=== PATIENT | female | born 1945 | race Caucasian/White ===

== ENCOUNTER 2018-10-08 14:54 | Inpatient (IN) | payer MEDICARE ==
[~2018-10-08] VITALS: Ht 162.6 cm; Wt 62.5 kg
[~2018-10-08 14:54] MED LIST: Amoxicillin500 MG PO; Aspir 8181 MG PO; Crutch1 EACH MISC; IBUP800 PO; LISI20 PO; LOVA40; LOVA40 PO; METO50ER PO; Norco 5-325 Ta1 EACH PO; OLME20 PO; OLMESARTAN-HCT1 EAC2 PO; OXYACE5T PO; PSEU120ER PO
[2018-10-08 16:16] LABS: BASOPHILS ABSOLUTE AUTO 0.04 K/mm3 (0.00-0.23); BASOPHILS PERCENT AUTO 1 % (0-2); EOSINOPHILS ABSOLUTE AUTO 0.02 K/mm3 (0.00-0.68); EOSINOPHILS PERCENT AUTO 0 % (0-6); Hematocrit 44.3 % (33.0-51.0); Hemoglobin 14.1 g/dL (11.5-16.0); IMMATURE GRAN ABSOLUTE AUTO 0.02 K/mm3 (0.00-0.10); IMMATURE GRAN PERCENT AUTO 0 % (0-1); LYMPHOCYTES ABSOLUTE AUTO 1.14 K/mm3 (0.84-5.20); LYMPHOCYTES PERCENT AUTO 16 % (21-46); MONOCYTES ABSOLUTE AUTO 0.57 K/mm3 (0.16-1.47); MONOCYTES PERCENT AUTO 8 % (4-13); Mean Corpuscular HGB 30.5 pg (26.0-34.0); Mean Corpuscular HGB Conc 31.8 g/dL (31.5-36.5); Mean Corpuscular Volume 96 fL (80-100); Mean Platelet Volume 11.3 fL (9.1-12.4); NEUTROPHILS PERCENT AUTO 76 % (41-73); Platelet Count 215 K/mm3 (150-400); RDW Coefficient Variation 13.4 % (11.7-14.2); RDW Standard Deviation 47.8 fL (35.1-46.3); Red Blood Cell Count 4.62 M/mm3 (3.80-5.20); White Blood Cell Count 7.29 K/mm3 (4.00-11.30)
[2018-10-08 16:31] LABS: Troponin I 0.052 ng/mL (0.000-0.040)
[2018-10-08 16:32] LABS: Alanine Aminotransfer (ALT/SGP 29 U/L (12-78); Albumin, Blood 4.1 g/dL (3.4-5.0); Alk Phos 113 U/L (50-136); Anion Gap 6 mmol/L (6-16); Aspartate Aminotrans (AST/SGOT 22 U/L (12-37); Bilirubin, Total 0.5 mg/dL (0.1-1.0); Blood Urea Nitrogen 15 mg/dL (8-24); Bun/Creatinine Ratio 15.7 (12.0-20.0); CO2, Blood 28 mmol/L (21-32); Calcium, Blood 9.2 mg/dL (8.5-10.1); Chloride, Blood 106 mmol/L (98-108); Creatinine, Blood 0.96 mg/dL (0.40-1.00); Globulin, Blood 4.2 g/dL (2.2-4.0); Glomerular Filtration Rate >60 (60-); Glucose, Blood 153 mg/dL (70-99); Potassium, Blood 3.5 mmol/L (3.5-5.5); Sodium, Blood 140 mmol/L (136-145); Total Protein, Blood 8.3 g/dL (6.4-8.2)
[2018-10-08] MEDS ORDERED: Benicar40 MG PO (17:57)
--- NOTE | 2018-10-09 05:49 | NUR ---
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 PT AAOX4 AND A STANDBY ASSIST DUE TO SYNCOPAL EPISODE AT HOME PRIOR TO ADMIT. PT AMBULATES WELL AND HAS DENIED DIZZINESS SINCE ADMIT. HYPERTENSIVE ON ARRIVAL WITH SBP 182. GAVE ORDERED PO HYDRALAZINE 25 MG. AFTER RECHECKING BP AN HOUR AND A HALF LATER SBP WENT UP TO LOW 200'S. SPOKE WITH DR REILLY AND RECIEVED ORDERS FOR IV HYDRALAZINE 10-20 MG. SBP DOWN TO 150'S WITH 10 MG IV HYDRALAZINE. 3RD REPEAT TROPONIN TRENDING DOWN. PT DENIES PAIN, N/V, SOB. VSS, WILL CONTINUE TO MONITOR
[2018-10-09 07:31] LABS: BASOPHILS ABSOLUTE AUTO 0.02 K/mm3 (0.00-0.23); BASOPHILS PERCENT AUTO 1 % (0-2); EOSINOPHILS ABSOLUTE AUTO 0.14 K/mm3 (0.00-0.68); EOSINOPHILS PERCENT AUTO 3 % (0-6); Hematocrit 39.7 % (33.0-51.0); Hemoglobin 13.1 g/dL (11.5-16.0); IMMATURE GRAN PERCENT AUTO 0 % (0-1); LYMPHOCYTES ABSOLUTE AUTO 1.71 K/mm3 (0.84-5.20); LYMPHOCYTES PERCENT AUTO 40 % (21-46); MONOCYTES ABSOLUTE AUTO 0.51 K/mm3 (0.16-1.47); MONOCYTES PERCENT AUTO 12 % (4-13); Mean Corpuscular HGB 30.7 pg (26.0-34.0); Mean Platelet Volume 10.6 fL (9.1-12.4); NEUTROPHILS ABSOLUTE AUTO 1.93 K/mm3 (1.96-9.15); NEUTROPHILS PERCENT AUTO 45 % (41-73); Platelet Count 193 K/mm3 (150-400); RDW Coefficient Variation 13.2 % (11.7-14.2); RDW Standard Deviation 45.3 fL (35.1-46.3); Red Blood Cell Count 4.27 M/mm3 (3.80-5.20); White Blood Cell Count 4.31 K/mm3 (4.00-11.30)
[2018-10-09 07:35] LABS: Mean Corpuscular Volume 93 fL (80-100)
[2018-10-09 08:09] LABS: Alanine Aminotransfer (ALT/SGP 22 U/L (12-78); Albumin, Blood 3.3 g/dL (3.4-5.0); Albumin/Globulin Ratio 0.9 (0.8-1.8); Alk Phos 89 U/L (50-136); Anion Gap 5 mmol/L (6-16); Aspartate Aminotrans (AST/SGOT 17 U/L (12-37); Bilirubin, Total 0.4 mg/dL (0.1-1.0); Blood Urea Nitrogen 13 mg/dL (8-24); Bun/Creatinine Ratio 21.4 (12.0-20.0); CO2, Blood 25 mmol/L (21-32); CPK Creatine Kinase 66 U/L (26-193); Calcium, Blood 8.5 mg/dL (8.5-10.1); Chloride, Blood 111 mmol/L (98-108); Creatine Kinase MB 1.5 ng/mL (0.0-3.6); Creatine Kinase MB Index 2.3 (0.0-4.0); Creatinine, Blood 0.61 mg/dL (0.40-1.00); Globulin, Blood 3.6 g/dL (2.2-4.0); Glomerular Filtration Rate >60 (60-); Glucose, Blood 93 mg/dL (70-99); Potassium, Blood 3.4 mmol/L (3.5-5.5); Sodium, Blood 141 mmol/L (136-145); Total Protein, Blood 6.9 g/dL (6.4-8.2)
--- NOTE | 2018-10-09 10:39 | NUR ---
Echocardiogram completed.
--- NOTE | 2018-10-09 17:50 | NUR ---
SHIFT SUMMARY THE PATIENT PRESENTED THIS SHIFT WITH VITALS WNL, EXCEPT ELEVATED B/P, A&O X4 AND WITH CLEAR LUNGS. THE PATIENT'S B/P HAS BEEN ELEVATED MOST OF THE SHIFT, BUT DOCTOR ISTRATE ORDERED VASOTEC AND THE PATIENT'S B/P WENT DOWN TO 147/75 AT 1630. THE PATIENT'S FAMILY HAS BEEN IN AND OUT MOST OF THE SHIFT. THE PATIENT HAS HAD A VARITY OF TESTS AND CONSULTS THIS SHIFT. THE PATIENT IS EATING DINNER AT HIS TIME, WILL CONTINUE TO MONITOR.
--- NOTE | 2018-10-10 04:31 | NUR ---
SUMMARY: A/OX4, SPECIFIES NEEDS AND INDEPENDENT IN ROOM. PT AWARE TO CALL IF DIZZY/LIGHTHEADED OR DEVELOPS ANY S/S CARDIAC DISTRESS BUT HAS DENIED THEM THIS SHIFT. 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 BP BETTER TONIGHT W/SBP 14O'S-160, NO NEED FOR PRN VASOTEC OR HYDRALAZINE PER PARAMETERS. SHE IS NPO EXCEPT ICE/MEDS FOR STRESS TEST AND POSSIBLE LOOP RECORDER IMPLANT THIS TODAY PER CARDIOLOGY. LS CLEAR AND DIM IN BASES W/O ANY SOB. SHE HAD FAMILY VISITING AT START OF SHIFT BUT HAS SINCE SLEPT MAJORITY OF NOCTE W/O COMPLAINTS/CONCERSN. NO ACUTE CHANGES, VSS/AFEBRILE. WILL MONITOR AND REPORT TO DAY RN.
[2018-10-10 05:19] LABS: BASOPHILS ABSOLUTE AUTO 0.04 K/mm3 (0.00-0.23); BASOPHILS PERCENT AUTO 1 % (0-2); EOSINOPHILS ABSOLUTE AUTO 0.17 K/mm3 (0.00-0.68); EOSINOPHILS PERCENT AUTO 3 % (0-6); Hematocrit 39.9 % (33.0-51.0); Hemoglobin 12.8 g/dL (11.5-16.0); IMMATURE GRAN ABSOLUTE AUTO 0.01 K/mm3 (0.00-0.10); IMMATURE GRAN PERCENT AUTO 0 % (0-1); LYMPHOCYTES ABSOLUTE AUTO 1.91 K/mm3 (0.84-5.20); LYMPHOCYTES PERCENT AUTO 39 % (21-46); MONOCYTES ABSOLUTE AUTO 0.49 K/mm3 (0.16-1.47); MONOCYTES PERCENT AUTO 10 % (4-13); Mean Corpuscular HGB 30.5 pg (26.0-34.0); Mean Corpuscular HGB Conc 32.1 g/dL (31.5-36.5); Mean Corpuscular Volume 95 fL (80-100); Mean Platelet Volume 11.2 fL (9.1-12.4); NEUTROPHILS ABSOLUTE AUTO 2.34 K/mm3 (1.96-9.15); NEUTROPHILS PERCENT AUTO 47 % (41-73); Platelet Count 213 K/mm3 (150-400); RDW Coefficient Variation 13.6 % (11.7-14.2); White Blood Cell Count 4.96 K/mm3 (4.00-11.30)
[2018-10-10 05:45] LABS: Anion Gap 8 mmol/L (6-16); Blood Urea Nitrogen 20 mg/dL (8-24); Bun/Creatinine Ratio 22.6 (12.0-20.0); CO2, Blood 28 mmol/L (21-32); Calcium, Blood 8.9 mg/dL (8.5-10.1); Chloride, Blood 108 mmol/L (98-108); Creatinine, Blood 0.89 mg/dL (0.40-1.00); Glomerular Filtration Rate >60 (60-); Glucose, Blood 100 mg/dL (70-99); Sodium, Blood 144 mmol/L (136-145)
--- NOTE | 2018-10-10 08:25 | NUR ---
STRESS TEST/LOOP RECORDER DR. COTTON CALLED TO CLARIFY IF THE PT NEEDS TO BE NPO FOR THE LOOP RECORDER PLACMENT. STATED NO NEED FOR NPO BEFORE PLACEMENT. RODNEY IN [facility] CALLED & INFORMED OF THIS INFO. STRESS TEST NOW WILL BE TENTATIVELY SCHEDULED FOR 1400. PT GIVEN BREAKFAST AT THIS TIME. LUNCH WILL BE HELD.
--- NOTE | 2018-10-10 17:21 | NUR ---
SHIFT SUMMARY PT HAD LOOP RECORDER INPLANTED INTO L CHEST WALL. PT STATES NO PAIN FROM INJECTION SITE. NO BLEEDING NOTED AT SITE. PT SCHEDULED TO HAVE STRESS TEST TOMORROW AT NOON. PT TO BE NPO AT 0800 TOMORROW MORNING. NO OTHER CHANGES IN ASSESSMENT AT THIS TIME. PT IND IN ROOM. WILL CONTINUE TO MONITOR UNTIL TURNOVER IS COMPLETE.
--- NOTE | 2018-10-11 07:28 | NUR ---
SHIFT SUMMARY PT A/O. INDEPENDENT IN ROOM. BP HIGH ENOUGH FOR PARAMETERS TO MEDICATED PER EMAR X2 FOR HYPERTENTION. SHE WAS ABLE TO SLEEP ON AND OFF T/O NIGHT. CALL LIGHT IN REACH.
--- NOTE | 2018-10-11 18:00 | NUR ---
SHIFT SUMMARY PT COMPLETED FIRST PORTION OF STRESS TEST TODAY. PT TO BE NPO AT MIDNIGHT IN PREPARATION FOR SECOND PORTION TOMORROW. PT RECIEVED SHOWER THIS SHIFT. NO CHANGES IN INSERTION SITE AT THIS TIME. VSS. WILL CONTINUE TO MONITOR UNTIL TURNOVER IS COMPLETE.
[2018-10-12 05:14] LABS: BASOPHILS ABSOLUTE AUTO 0.03 K/mm3 (0.00-0.23); BASOPHILS PERCENT AUTO 1 % (0-2); EOSINOPHILS ABSOLUTE AUTO 0.16 K/mm3 (0.00-0.68); EOSINOPHILS PERCENT AUTO 3 % (0-6); Hematocrit 40.6 % (33.0-51.0); Hemoglobin 12.9 g/dL (11.5-16.0); IMMATURE GRAN PERCENT AUTO 0 % (0-1); LYMPHOCYTES PERCENT AUTO 39 % (21-46); MONOCYTES ABSOLUTE AUTO 0.51 K/mm3 (0.16-1.47); MONOCYTES PERCENT AUTO 10 % (4-13); Mean Corpuscular HGB 30.4 pg (26.0-34.0); Mean Corpuscular HGB Conc 31.8 g/dL (31.5-36.5); Mean Corpuscular Volume 96 fL (80-100); Mean Platelet Volume 10.8 fL (9.1-12.4); NEUTROPHILS ABSOLUTE AUTO 2.33 K/mm3 (1.96-9.15); NEUTROPHILS PERCENT AUTO 47 % (41-73); Platelet Count 226 K/mm3 (150-400); RDW Coefficient Variation 13.3 % (11.7-14.2); RDW Standard Deviation 47.2 fL (35.1-46.3); Red Blood Cell Count 4.25 M/mm3 (3.80-5.20); White Blood Cell Count 4.93 K/mm3 (4.00-11.30)
[2018-10-12 05:41] LABS: Anion Gap 8 mmol/L (6-16); Blood Urea Nitrogen 15 mg/dL (8-24); Bun/Creatinine Ratio 19.9 (12.0-20.0); CO2, Blood 26 mmol/L (21-32); Chloride, Blood 109 mmol/L (98-108); Creatinine, Blood 0.75 mg/dL (0.40-1.00); Glomerular Filtration Rate >60 (60-); Glucose, Blood 95 mg/dL (70-99); Sodium, Blood 143 mmol/L (136-145)
--- NOTE | 2018-10-12 06:38 | NUR ---
SHIFT SUMMARY PT A/O. SHE WAS ABLE TO SLEEP THROUGHTOUT NIGHT. NO ACUTE CHANGES. CALL LIGHT IN REACH.
--- NOTE | 2018-10-12 17:42 | NUR ---
SHIFT SUMMARY PT COMPLETED SECOND PORTION OF STRESS TEST THIS SHIFT. PT PENDING DISCHARGE DEPENDING ON RESULTS. PT IN STABLE CONDITION WITH VSS. NO CHANGES IN ASSESSMENT AT THIS TIME. PT UP IN ROOM WITH FAMILY AT BEDSIDE. PT INSTRUCTED BY DR. JOHNSON TO FOLLOW UP AN OUTPATIENT WITH HIM ONCE DISCHARGED. WILL CONTINUE TO MONITOR UNTIL TURNOVER IS COMPLETE.
--- NOTE | 2018-10-13 06:40 | NUR ---
Rn summary: Patient is alert and oriented. She has been pain free, has had no syncopal episodes. Pt states she has rested well. Pt is hopefull to go home today. Pt has been delightful and stable.
--- NOTE | 2018-10-13 14:27 | NUR ---
DISCHARGE NOTE PT DISCHARGED HOME WITH SPOUSE PRESENT. PT LEAVING ROOM AT THIS TIME VIA WHEELCHAIR AND HAND SIGN WRITER ESCORT. IV DC'D AND BELONGINGS RETURNED. TELE DC'D. DISCHARGE TEACHING COMPLETES, ALL QUESTIONS ANSWERED. PT AGREES TO FOLLOW UP WITH CARIOLOGIST, DR JOHNSON AND PCP.
== END 2018-10-13 14:31 | disposition home or self-care (01) | DRG 41 ==
LOC: ER 14:54 → MEDS 14:55 → ENPENDDIS 10-13 11:50 → MEDS 10-13 14:31
PROVIDERS: Family Medicine; Physician Assistant; ADMIT Internal Medicine
PROC: 0JH632Z Insertion of Monitoring Device into Chest Subcutaneous Tissue and Fascia, Percutaneous Approach (ICD-10-PCS; principal; 2018-10-10)
DX: I65.23 Occlusion and stenosis of bilateral carotid arteries (principal); I24.8 Other forms of acute ischemic heart disease; I95.1 Orthostatic hypotension; I16.0 Hypertensive urgency; E87.6 Hypokalemia; G47.33 Obstructive sleep apnea (adult) (pediatric); E78.5 Hyperlipidemia, unspecified; I73.9 Peripheral vascular disease, unspecified; I10 Essential (primary) hypertension; Z87.891 Personal history of nicotine dependence; F41.9 Anxiety disorder, unspecified
CPT/HCPCS: 33285; 36415; 70450; 71046; 78452; 80048; 80053; 82550; 82553; 83735; 84443; 84484; 85025; 93005; 93010; 93017; 93306; 93880; 99285-25; A9500; C1764; C9113; J0360; J1650; J2405; J2785

== ENCOUNTER 2018-10-15 00:08 | Emergency (ER) | payer MEDICARE ==
[~2018-10-15] VITALS: Ht 162.6 cm; Wt 61.2 kg
[~2018-10-15 00:08] MED LIST changes: +Benicar40 MG PO
== END 2018-10-15 03:53 | disposition home or self-care (01) ==
LOC: ER 00:08
DX: I10 Essential (primary) hypertension (principal); E78.00 Pure hypercholesterolemia, unspecified; Z79.82 Long term (current) use of aspirin; Z79.899 Other long term (current) drug therapy; Z88.5 Allergy status to narcotic agent
CPT/HCPCS: 93005; 93010; 99283-25